=== PATIENT | female | born 1940 | race African-American/Black ===

== ENCOUNTER 2018-04-21 06:37 | Day surgery (SDC) | payer OTHER ==
--- OUTSIDE RECORDS SUMMARY | 2018-04-21 06:43 | XMS REPORT | Continuity of Care Document ---
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 There is no excessive joint fluid. No soft tissue injury is identified. IMPRESSION: 1. No acute fracture or malalignment. 2. Moderate knee osteoarthrosis. 3. Knee joint chondrocalcinosis. HEMATOLOGY MPV 8.6 fL 7.4 - 10.4 05/02 /2014 [facility] HEMATOLOGY MCV 78.9 fL 80.0 - 05/02 98.0 /2014 [facility] MCH 27.4 pg 27.0 - 05/02 31.0 [facility] MCHC 34.7 g/dL 32.0 - 05/02 36.0 /2014 [facility] Hct 42.5 % 36.0 - 05/02 48.0 /2014 [facility] WBC 5.5 K/CMM 3.7 - 10.4 05/02 [facility] RBC 5.38 M/CMM 4.20 - 03 MH 5.40 /2014 [facility] HEMATOLOGY RDW 14.8 % 11.5 - 05/02 14.5 [facility] HEMATOLOGY Platelet 226 K/CMM 133 - 450 05/02 [facility] HEMATOLOGY Hgb 14.7 g/dL 12.0 - 05/02 16.0 /2014 [facility] Microcyte 1+ None Seen 05/02 [facility] *ABN* (05/02/14 1:27 PM) HEMATOLOGY Segs-Bands # 2.9 K/CMM 1.5 - 8.1 05/02 [facility] HEMATOLOGY Monocytes # 0.5 K/CMM 0.0 - 0.8 05/02 [facility] HEMATOLOGY Lymphocytes 2.1 K/CMM 1.0 - 5.5 05/02 [facility] HEMATOLOGY Eosinophils 0.1 K/CMM 0.0 - 0.5 05/02 [facility] HEMATOLOGY Monocytes 8.5 % 2.0 - 12.0 05/02 [facility] HEMATOLOGY Eosinophils 1.2 % 0.0 - 4.0 05/02 [facility] HEMATOLOGY Lymphocytes 37.9 % 20.0 - 05/02 40.0 /2014 [facility] HEMATOLOGY Basophils 0.5 % 0.0 - 1.0 05/02 [facility] HEMATOLOGY Segs 51.9 % 45.0 - 05/02 75.0 /2014 [facility] CHEM PANEL eGFR 84 05/02 1Result Comment: The eGFR is calculated using the CKD-EPI formula. In most young, healthy individuals the eGFR will be >90 mL/ min/1.73m2. The eGFR declines with age. An eGFR of 60-89 may be normal in mL/min/1.7 /2015 some populations, particularly the elderly, for whom the CKD-EPI formula has not been extensively validated. Use of the eGFR is not recommended in the following populations: [facility] 3m2 Individuals with unstable creatinine concentrations, including patients and those with serious co-morbid conditions. Patients with extremes in muscle mass or diet. The data above are obtained from the National Kidney Disease Education Program (NKDEP) which additionally recommends that when the eGFR is used in patients with extremes of body mass index for purposes of drug dosing, the eGFR should be multiplied by the estimated BMI. CHEM PANEL AGAP 9.8 meq/L 10.0 - 05/02 . [facility] CHEM PANEL BUN 5 mg/dL 7 - 22 05/02 [facility] CHEM PANEL Sodium Lvl 135 meq/L 135 - 145 05/02 [facility] CHEM PANEL Creatinine 0.8 mg/dL 0.5 - 1.4 05/02 [facility] CHEM PANEL Potassium 3.8 meq/L 3.5 - 5.1 05/02 [facility] CHEM PANEL Calcium Lvl 9.1 mg/dL 8.5 - 10.5 05/02 [facility] CHEM PANEL Chloride Lvl 100 meq/L 95 - 109 05/02 [facility] CHEM PANEL CO2 29 meq/L 24 - 32 05/02 [facility] CHEM PANEL Glucose Lvl 82 mg/dL 70 - 99 05/02 2Interpretive Data: Adult reference range values reflect the clinical guidelines of the [place] [employer]. [facility] CHEMISTRY AGAP 13.9 meq/L 10.0 - 02/06 Normal [facility] . [facility] CHEMISTRY Calcium Lvl 8.3 mg/dL 8.5 - 10.5 02/06 LOW [facility] CHEMISTRY Creatinine 0.8 mg/dL 0.5 - 1.4 02/06 Normal [facility] CHEMISTRY Chloride Lvl 106.0 95 - 109 02/06 Normal [facility] meq/L [facility] CHEMISTRY Potassium 3.9 meq/L 3.5 - 5.1 02/06 Normal [facility] CHEMISTRY Sodium Lvl 142.0 135 - 145 02/06 Normal [facility] meq/L [facility] Center CHEMISTRY Glucose Lvl 98.0 mg/dL 02/06 NA 3Interpretive Data: Medical Reference Center Ranges : 0 - 7 days : 41 - 90 mg/dL7 days - 150 yrs : 70 - 99 mg/dL (fasting), based on the clinical recommendatio ns of the [place] [employer]. CHEMISTRY CO2 26.0 meq/L 24 - 32 02/06 Normal [facility] CHEMISTRY BUN 9.0 mg/dL 7 - 22 02/06 Normal [facility] CHEMISTRY Magnesium 1.6 mg/dL 1.8 - 2.4 02/06 LOW [facility] HEMATOLOGY INR 1.14 0.85 - 12/ Normal 6Interpretive [place] 1.17 /2010 Data: [facility] Center RANGES FOR PROTIME INR: 2.0-3.0 for most medical and surgical thromboemboli c states. 2.5-3.5 for artificial heart valves and recurrent embolism.INR SHOULD BE USED ONLY FOR PATIENTS ON STABLE ANTICOAGULANT THERAPY. HEMATOLOGY PT 14.6 s 12.0 - 12/ Normal [place] 14.7 /2010 [facility] HEMATOLOGY MCV 80.3 fL 81.0 - 12/ LOW [place] 99.0 /2010 [facility] HEMATOLOGY Hct 34.1 % 36.0 - 12/07 LOW [place] 48.0 /2010 [facility] HEMATOLOGY Hgb 11.6 g/dL 12.0 - 12 LOW [facility] 16.0 /2010 [facility] HEMATOLOGY RBC 4.25 M/CMM 4.20 - 12/ Normal [facility] 5.40 /2010 [facility] HEMATOLOGY MPV 7.9 fL 7.4 - 10.4 12/ Normal /2010 [facility] HEMATOLOGY Platelet 168.0 133 - 450 12/ Normal [facility] K/CMM /2010 [facility] HEMATOLOGY RDW 14.7 % 11.5 - 12/07 HI [facility] 14.5 /2010 [facility] HEMATOLOGY WBC 5.1 K/CMM 3.7 - 10.4 12/ Normal /2010 [facility] HEMATOLOGY MCHC 34.0 g/dL 32.0 - 12/07 Normal [facility] 36.0 /2010 [facility] HEMATOLOGY MCH 27.3 pg 27.0 - 12/07 Normal [facility] 31.0 /2010 [facility] HEMATOLOGY Lymphocytes 31.4 % 20.0 - 12/07 Normal [facility] 40.0 /2010 [facility] HEMATOLOGY Segs 60.7 % 45.0 - 12/07 Normal [facility] 75.0 /2010 [facility] HEMATOLOGY Monocytes 6.3 % 2.0 - 12.0 12/ Normal /2010 [facility] HEMATOLOGY Eosinophils 1.2 % 0.0 - 4.0 12/ Normal [place] /2010 [facility] HEMATOLOGY Monocytes # 0.3 K/CMM 0.0 - 0.8 12/ Normal [place] /2010 [facility] HEMATOLOGY Lymphocytes 1.6 K/CMM 1.0 - 5.5 12/ Normal [facility] # /2010 [facility] HEMATOLOGY Segs-Bands # 3.1 K/CMM 1.5 - 8.1 02/06 Normal [facility] HEMATOLOGY Basophils 0.4 % 0.0 - 1.0 02/06 Normal [facility] HEMATOLOGY Eosinophils 0.1 K/CMM 0.0 - 0.5 02/06 Normal [place] # /2010 [facility] HEMATOLOGY Basophils # 0.0 K/CMM 0.0 - 0.2 02/06 Normal [facility] BLOOD BANK AB Int Anti-K 02/05 Unknown [facility] RESULTS /2010 [facility] BLOOD BANK Antibody Positive 1 02/05 Normal 1Result [facility] RESULTS Scr Comment: Medical (02/05/2011 06:00:00) ?? 02/05/2011 Center 07:59 [id number] nt has unexpected antibodies. Allow extra time for additional crossmatches. 02/05/2011 07:59 [email or web address]"Sign ificant Findings of POSITIVE ABSC_ called to PETRA at [facility] by [facility] Read Back OK" BLOOD BANK ABO/Rh O POS 02/05 Unknown [facility] RESULTS [facility] CHEMISTRY Calcium Lvl 8.5 mg/dL 8.5 - 10.5 02/05 Normal [facility] CHEMISTRY Creatinine 0.7 mg/dL 0.5 - 1.4 02/05 Normal [facility] CHEMISTRY Glucose Lvl 102.0 02/05 NA 4Interpretive [facility] mg/dL Data: [facility] Center Ranges : 0 - 7 days : 41 - 90 mg/dL7 days - 150 yrs : 70 - 99 mg/dL (fasting), based on the clinical recommendatio ns of the [place] [employer]. CHEMISTRY BUN 12.0 mg/dL 7 - 22 02/05 Normal [facility] CHEMISTRY CO2 25.0 meq/L 24 - 32 02/05 Normal [facility] CHEMISTRY Sodium Lvl 143.0 135 - 145 02/05 Normal [facility] meq/L [facility] CHEMISTRY Potassium 3.9 meq/L 3.5 - 5.1 02/05 Normal [facility] Lvl [facility] CHEMISTRY Chloride Lvl 106.0 95 - 109 02/05 Normal [facility] meq/L [facility] CHEMISTRY AGAP 15.9 meq/L 10.0 - 02/05 Normal [place] 20.0 [facility] HEMATOLOGY Lymphocytes 1.9 K/CMM 1.0 - 5.5 12 Normal [facility] # /2010 [facility] Center HEMATOLOGY Monocytes # 0.4 K/CMM 0.0 - 0.8 02/05 Normal [facility] HEMATOLOGY Eosinophils 0.1 K/CMM 0.0 - 0.5 02/05 Normal [facility] # /2010 [facility] HEMATOLOGY Basophils # 0.0 K/CMM 0.0 - 0.2 02/05 Normal [facility] HEMATOLOGY Lymphocytes 37.1 % 20.0 - 12 Normal [place] 40.0 /2010 [facility] HEMATOLOGY Basophils 0.7 % 0.0 - 1.0 02/05 Normal [facility] HEMATOLOGY Segs-Bands # 2.7 K/CMM 1.5 - 8.1 02/05 Normal [facility] HEMATOLOGY Eosinophils 2.2 % 0.0 - 4.0 02/05 Normal [facility] HEMATOLOGY Monocytes 7.9 % 2.0 - 12.0 02/05 Normal [facility] HEMATOLOGY Microcyte 1+ >None Seen 02/05 ABN Medical *ABN* Center (02/05/2011 05:56:00) ?? HEMATOLOGY Segs 52.1 % 45.0 - 02/05 Normal [facility] 75.0 [facility] HEMATOLOGY INR 1.05 0.85 - 02/05 Normal 7Interpretive [facility] 1.17 Data: Medical RECOMMENDED Center RANGES FOR PROTIME INR: 2.0-3.0 for most medical and surgical thromboemboli c states. 2.5-3.5 for artificial heart valves and recurrent embolism.INR SHOULD BE USED ONLY FOR PATIENTS ON STABLE ANTICOAGULANT THERAPY. HEMATOLOGY PT 13.7 s 12.0 - 12 Normal [facility] 14.7 [facility] HEMATOLOGY PTT 28.4 s 22.9 - 12 Normal 9Interpretive [facility] 35.8 Data: [facility] Range: 57 - 92 Seconds HEMATOLOGY Platelet 209.0 133 - 450 02/05 Normal [facility] K/CMM /2010 [facility] HEMATOLOGY MPV 8.2 fL 7.4 - 10.4 02/05 Normal [facility] HEMATOLOGY WBC 5.2 K/CMM 3.7 - 10.4 02/05 Normal [facility] HEMATOLOGY Hct 36.2 % 36.0 - 12 Normal [facility] 48.0 /2010 [facility] HEMATOLOGY MCV 77.6 fL 81.0 - 02/05 LOW [facility] 99.0 /2010 [facility] HEMATOLOGY MCH 27.1 pg 27.0 - 02/05 Normal [facility] 31.0 /2010 [facility] HEMATOLOGY MCHC 34.9 g/dL 32.0 - 02/05 Normal [facility] 36.0 /2010 [facility] HEMATOLOGY RDW 14.4 % 11.5 - 02/05 Normal [facility] 14.5 /2010 [facility] HEMATOLOGY RBC 4.66 M/CMM 4.20 - 02/05 Normal [facility] 5.40 /2010 [facility] HEMATOLOGY Hgb 12.6 g/dL 12.0 - 02/05 Normal [facility] 16.0 /2010 [facility] URINALYSIS UA <=1.0 0.1 - 1.0 02/05 [facility] Urobilinogen mg/dL /2010 Medical
*NA*< Center br/>(02/05 05:56:00) <sup>??</s up> URINALYSIS UA Nitrite Negative >Negative 02/05 Normal [facility] (02/05/2011 05:56:00) ?? Center URINALYSIS UA Sq Epi Moderate /LPF >Few 02/05 ABN [facility] *ABN* Center (02/05/2011 05:56:00) ?? URINALYSIS UA Leuk Est Negative >Negative 02/05 Normal [facility] (02/05/2011 05:56:00) ?? Center URINALYSIS UA Bacteria Occasional /HPF >None Seen 02/05 [facility] Medical *NA* Center (02/05/2011 05:56:00) ?? URINALYSIS UA Blood Negative >Negative 02/05 Normal Medical (02/05/2011 05:56:00) ?? Center URINALYSIS UA WBC 1.0 /HPF 0 - 5 02/05 Normal [facility] Center URINALYSIS UA Glucose Negative mg/dL >Negative 02/05 NA Medical *NA* Center (02/05/2011 05:56:00) ?? URINALYSIS UA Bili Negative >Negative 02/05 NA Medical *NA* Center (02/05/2011 05:56:00) ?? URINALYSIS UA Ketones Negative mg/dL >Negative 02/05 [facility] [place] (02/05/2011 05:56:00) ?? URINALYSIS UA Protein 10 mg/dL >Negative 02/05 [facility] [place] (02/05/2011 05:56:00) ?? URINALYSIS UA Spec Grav 1.023 <<=1.030 02/05 Normal [facility] URINALYSIS UA pH 5.0 5.0 - 8.0 02/05 Normal [facility] URINALYSIS UA Turbidity Slight >Clear 02/05 [facility] [place] (02/05/2011 05:56:00) ?? URINALYSIS UA Color Yellow >Yellow 02/05 [facility] [place] (02/05/2011 05:56:00) ?? CHEMISTRY Glucose Lvl 103.0 01/29 NA 5Interpretive [facility] mg/dL Data: Medical [facility] Center Ranges : 0 - 7 days : 41 - 90 mg/dL7 days - 150 yrs : 70 - 99 mg/dL (fasting), based on the clinical recommendatio ns of the [place] [employer]. CHEMISTRY Creatinine 0.8 mg/dL 0.5 - 1.4 01/29 Normal [facility] CHEMISTRY Calcium Lvl 8.9 mg/dL 8.5 - 10.5 01/29 Normal [facility] CHEMISTRY BUN 10.0 mg/dL 7 - 22 01/29 Normal [facility] CHEMISTRY CO2 28.0 meq/L 24 - 32 01/29 Normal [facility] CHEMISTRY Chloride Lvl 101.0 95 - 109 01/29 Normal [facility] meq/L [facility] CHEMISTRY Potassium 3.9 meq/L 3.5 - 5.1 01/29 Normal [facility] CHEMISTRY Sodium Lvl 140.0 135 - 145 01/29 Normal [facility] meq/L [facility] CHEMISTRY AGAP 14.9 meq/L 10.0 - 01/29 Normal [facility] 20.0 [facility] HEMATOLOGY Segs-Bands # 3.2 K/CMM 1.5 - 8.1 01/29 Normal [facility] HEMATOLOGY Lymphocytes 2.1 K/CMM 1.0 - 5.5 01/29 Normal [place] # /2010 [facility] Center HEMATOLOGY Eosinophils 0.1 K/CMM 0.0 - 0.5 01/29 Normal [place] # /2010 [facility] HEMATOLOGY Monocytes # 0.4 K/CMM 0.0 - 0.8 01/29 Normal /2010 [facility] HEMATOLOGY Basophils # 0.0 K/CMM 0.0 - 0.2 01/29 Normal /2010 [facility] HEMATOLOGY Lymphocytes 35.3 % 20.0 - 11 Normal [place] 40.0 /2010 [facility] HEMATOLOGY Monocytes 7.1 % 2.0 - 12.0 01/29 Normal /2010 [facility] HEMATOLOGY Segs 55.1 % 45.0 - 01/29 Normal [place] 75.0 [facility] HEMATOLOGY Eosinophils 2.2 % 0.0 - 4.0 01/29 Normal /2010 [facility] HEMATOLOGY Basophils 0.3 % 0.0 - 1.0 01/29 Normal [facility] HEMATOLOGY INR 1.06 0.85 - 01/29 Normal 8Interpretive [facility] 1.17 Data: [facility] Center RANGES FOR PROTIME INR: 2.0-3.0 for most medical and surgical thromboemboli c states. 2.5-3.5 for artificial heart valves and recurrent embolism.INR SHOULD BE USED ONLY FOR PATIENTS ON STABLE ANTICOAGULANT THERAPY. HEMATOLOGY PT 13.8 s 12.0 - 01/29 Normal [place] 14.7 [facility] HEMATOLOGY PTT 29.8 s 22.9 - 01/29 Normal 10Interpretiv [facility] 35.8 e Data: [facility] Therapeutic Range: 57 - 92 Seconds HEMATOLOGY MCHC 34.5 g/dL 32.0 - 01/29 Normal [facility] 36.0 [facility] HEMATOLOGY Platelet 217.0 133 - 450 01/29 Normal [facility] K/CMM /2010 [facility] HEMATOLOGY MPV 8.7 fL 7.4 - 10.4 01/29 Normal /2010 [facility] HEMATOLOGY RDW 14.5 % 11.5 - 01/29 Normal [facility] 14.5 [facility] HEMATOLOGY MCH 27.3 pg 27.0 - 01/29 Normal [place] 31.0 [facility] HEMATOLOGY Hgb 13.1 g/dL 12.0 - 01/29 Normal [place] 16.0 [facility] HEMATOLOGY WBC 5.8 K/CMM 3.7 - 10.4 01/29 Normal /2010 [facility] HEMATOLOGY Hct 38.1 % 36.0 - 01/29 Normal [place] 48.0 [facility] HEMATOLOGY MCV 79.0 fL 81.0 - 01/29 LOW [place] 99.0 [facility] HEMATOLOGY RBC 4.82 M/CMM 4.20 - 01/29 Normal [place] 5.40 /2010 [facility] BLOOD BANK Antibody Positive 2 01/29 Normal 2Result [facility] RESULTS Scr Comment: Medical (01/29/2011 10:30:00) ?? 01/29/2011 Center 11:43 [email or web address]"Sign ificant Findings called to [place]_at 1140__by SH__.Read Back OK." BLOOD BANK ABO/Rh O POS 01/29 Unknown [facility] RESULTS [facility] BLOOD BANK AB Int Anti-K 01/29 Unknown [facility] BLOOD BANK Path AB An anti-K 01/29 NA [facility] RESULTS [facility] in this patient??? s serum. This antibody is directed against Yady antigen of the ???Louisa??? blood group system. It is typically IgG in nature and forms in response to RBC sensitizat ion via prior and/or transfusio n. Anti-K is considered a clinically significan t antibody; it has been associated with hemolytic transfusio n reactions. Should RBC transfusio n be necessary, K-negative crossmatch -compatibl e blood will be issued. Little difficulty in obtaining compatible blood is anticipate d since 90% of the donor population lacks the K-antigen. The patient??? s electronic medical record has been reviewed for relevant informatio n.I have reviewed the test results and concur with the resident's interpreta tion.CPT: 53267-SS Vital Signs Vital Sign Value Date Comments Source Systolic (mm Hg) 161 07/25/2017 [facility] Diastolic (mm Hg) 78 07/25/2017 [facility] Heart Rate 72 07/25/2017 [facility] Respitory Rate 12 07/25/2017 [facility] BMI Calculated 35.81 07/25/2017 [facility] Height 172.72 cm 07/25/2017 [facility] Weight 106.818 07/25/2017 [facility] Systolic (mm Hg) 151 10/23/2014 [facility] Diastolic (mm Hg) 73 10/23/2014 [facility] Respitory Rate 19 10/23/2014 [facility] Respitory Rate 16 10/23/2014 [facility] Systolic (mm Hg) 141 10/23/2014 [facility] Diastolic (mm Hg) 73 10/23/2014 [facility] Respitory Rate 22 10/23/2014 [facility] Systolic (mm Hg) 149 10/23/2014 [facility] Diastolic (mm Hg) 76 10/23/2014 [facility] Temperature Oral (F) 98.2 F 10/22/2014 [facility] Weight 96.818 10/22/2014 [facility] BMI Calculated 32.45 10/22/2014 [facility] Height 172.72 cm 10/22/2014 [facility] Temperature Oral (F) 97.7 F 10/22/2014 [facility] Heart Rate 78 10/22/2014 [facility] Respitory Rate 16 05/03/2014 [facility] Systolic (mm Hg) 156 05/03/2014 [facility] Diastolic (mm Hg) 88 05/03/2014 [facility] Respitory Rate 19 05/03/2014 [facility] Systolic (mm Hg) 153 05/03/2014 [facility] Diastolic (mm Hg) 84 05/03/2014 [facility] Systolic (mm Hg) 121 05/03/2014 [facility] Diastolic (mm Hg) 78 05/03/2014 [facility] Respitory Rate 17 05/03/2014 [facility] Heart Rate 69 05/02/2014 [facility] Temperature Oral (F) 97.8 F 05/02/2014 [facility] BMI Calculated 32.96 05/02/2014 [facility] Weight 98.324 05/02/2014 [facility] Height 172.72 cm 05/02/2014 [facility] Systolic (mm Hg) 126.0 02/06/2011 [facility] Temperature Oral (F) 98.8 F 02/06/2011 [facility] Diastolic (mm Hg) 69.0 02/06/2011 [facility] Diastolic (mm Hg) 76.0 02/06/2011 [facility] Systolic (mm Hg) 161.0 02/06/2011 [facility] Diastolic (mm Hg) 67.0 02/06/2011 [facility] Systolic (mm Hg) 125.0 02/06/2011 [facility] Respitory Rate 13.0 02/05/2011 [facility] Respitory Rate 13.0 02/05/2011 [facility] Respitory Rate 18.0 02/05/2011 [facility] Height 172.72 cm 02/05/2011 [facility] Weight 108.182 02/05/2011 [facility] Weight 104.545 01/29/2011 [facility] Height 172.72 cm 01/29/2011 [facility] Encounters Location Location Encounter Encounter Reason Attending ADM DC Status Source Details Type Number For Provider Date Date [facility] [id number] SVT BETHANY 02/05 02/06 Active [facility] BROOKE /2010 [facility] Bedded [id number] Vicky Bocanegra 05/03 05/03 [facility] Outpatient /2014 [facility] Outpatient [id number] Elliott 09/07 09/08 Orestes Lexis /2014 [facility] EC [id number] Raulito 10/22 10/23 [facility] Emergency [place] /2014 [facility] Outpatient [id number] Elliott 07/25 07/26 [facility] Lexis /2017 [facility] Procedures Procedure Code Date Perfomer Comments Source Cataract surgery [id number] [facility] Cholecystectomy [id number] [facility] Hysterectomy [id number] [facility] Tubal ligation [id number] [facility] Cataract surgery [id number] [facility] Cholecystectomy [id number] [facility] Hysterectomy [id number] [facility] Tubal ligation [id number] [facility] Cataract surgery [id number] [facility] Cholecystectomy [id number] [facility] Hysterectomy [id number] [facility] Tubal ligation [id number] [facility]
--- OUTSIDE RECORDS SUMMARY | 2018-04-21 06:44 | XMS REPORT | CCD ---
:1940 Author Organization [facility] Care Team Providers Name Role Phone Reny Hernandez Petra Consulting Provider Sarah Quiñonez Consulting Provider Unavailable Tara Gaffney Consulting Provider Mena Flanagan Consulting Provider Unavailable Lizeth Brewer Consulting Provider Unavailable Jaida Ruiz Consulting Provider Barbara Lunsford Consulting Provider [phone] Vi Grimes Consulting Provider ChartSyi, Login Consulting Provider Unavailable Dimas Santos Consulting Provider Unavailable Noelle Ivy Consulting Provider Unavailable Ludy Minor Consulting Provider Unavailable Sharri Soto Consulting Provider Unavailable Supriya Gaona Consulting Provider Unavailable Lio Terry Consulting Provider Kimmie Syed Consulting Provider Unavailable Claritza Quinteros Consulting Provider Unavailable Prabhakar Adams Consulting Provider Unavailable SYSTEM, SYSTEM Consulting Provider Unavailable Cyndee Kee Consulting Provider Unavailable Lucy Smith Consulting Provider Sharri Lazaro Consulting Provider Chantelle Martin Consulting Provider Lali Smith Consulting Provider [phone] Fani Brooke Referring Provider Allergies, Adverse Reactions, Alerts Substance Reaction Status NKDA ?? Active Problem List Condition Effective Dates Status HTN - Hypertension ?? Active Pain ?? Active Supraventricular tachycardia ?? Active Medications Medication Instructions Start Date End Date Status morphine Sulfate 2 mg, 1 mL, Route: IV, 02/05/2011 02/05/2011 Completed Drug form: INJ, ONCE, Start date: 02/05/11 20:05:00, Stop date: 02/05/11 20:05:00 atenolol 50 mg oral tablet 50 mg, 1 tab, PO, Daily, 02/05/2011 ?? Ordered Substitution Allowed Zofran 4 mg, 2 mL, Route: IVP, 02/05/2011 02/06/2011 Discontinued Drug form: INJ, Q8H, PRN Nausea, Start date: 02/05/11 10:33:00, Duration: 30 day, Stop date: 03/07/11 10:32:00 Ambien 10 mg, Route: PO, 02/05/2011 02/05/2011 Deleted Bedtime, PRN Insomnia, Start date: 02/05/11 10:33:00, Duration: 30 day, Stop date: 03/07/11 10:32:00 magnesium oxide 400 mg, 1 tab, Route: 02/05/2011 02/06/2011 Discontinued PO, Drug form: TAB, Daily, PRN Abnormal Lab Result, Start date: 02/05/11 10:33:00, Duration: 30 day, Stop date: 03/07/11 10:32:00 potassium chloride 20 mEq 20 mEq, 1 tab, Route: 02/05/2011 02/06/2011 Discontinued oral tablet, extended PO, Drug form: ERTAB, release Daily, PRN Abnormal Lab Result, Replacement for potassium less than 3.5, Start date: 02/05/11 10:33:00, Duration: 30 day, Stop date: 03/07/11 10:32:00 Saline Flush 0.9% 5 ml, Route: IVP, Drug 02/05/2011 02/06/2011 Discontinued Form: INJ, PRN, PRN Line Flush, Start date: 02/05/11 10:33:00, Duration: 30 day, Stop date: 03/07/11 10:32:00 Saline Flush 0.9% 5 ml, Route: IVP, Drug 02/05/2011 02/06/2011 Discontinued Form: INJ, Q12H, Start date: 02/05/11 21:00:00, Duration: 30 day, Stop date: 03/07/11 9:00:00 morphine Sulfate 2 mg, 1 mL, Route: IVP, 02/05/2011 02/05/2011 Completed Drug form: INJ, Q15Min, PRN Chest Pain, Start date: 02/05/11 10:33:00, Duration: 2 doses or times, Stop date: 02/05/11 18:00:00 levothyroxine 0.1 mg, 1 tab, Route: 02/06/2011 02/06/2011 Discontinued PO, Drug form: TAB, Daily, Start date: 02/06/11 9:00:00, Duration: 30 day, Stop date: 03/07/11 9:00:00 atenolol 50 mg oral tablet 50 mg, 1 tab, Route: PO, 02/06/2011 02/06/2011 Discontinued Drug form: TAB, Daily, Start date: 02/06/11 9:00:00, Duration: 30 day, Stop date: 03/07/11 9:00:00 levothyroxine 100 mcg (0.1 0.1 mg, 1 tab, PO, 02/05/2011 ?? Ordered mg) oral tablet Daily, Substitution Allowed Vicodin 5/500 oral tablet 1 tab, PO, Q4H, PRN, 15 02/06/2011 ?? Ordered tab, for pain, Substitution Allowed, Maintenance, TAB morphine Sulfate 2 mg, 1 mL, Route: IV, 02/06/2011 02/06/2011 Discontinued Drug form: INJ, Q4H, PRN as needed for pain, Start date: 02/06/11 3:33:00, Duration: 30 day, Stop date: 03/08/11 3:32:00 Restoril 30 mg, 2 cap, Route: PO, 02/05/2011 02/06/2011 Discontinued Drug form: CAP, Bedtime, PRN Sleep, Start date: 02/05/11 10:38:00, Duration: 30 day, Stop date: 03/07/11 10:37:00 Vital Signs Most recent to oldest 1 2 3 [Reference Range]: Height 172.72 cm 172.72 cm ?? (02/05/2011 05:52:00) ?? (01/29/2011 10:32:00) ?? Temperature Oral 98.8 DegF ? [96.4-99.1 DegF] (02/06/2011 08:00:00) ?? Systolic Blood Pressure 126 mmHg 161 mmHg 125 mmHg [90-140 mmHg] (02/06/2011 08:00:00) ?? *HI* (02/06/2011 02:47:00) ?? (02/06/2011 04:45:00) ?? Diastolic Blood Pressure 69 mmHg 76 mmHg 67 mmHg [60-90 mmHg] (02/06/2011 08:00:00) ?? (02/06/2011 04:45:00) ?? (02/06/2011 02:47:00) ?? Respiratory Rate [14-20 13 BRMIN 13 BRMIN 18 BRMIN BRMIN] *LOW* *LOW* (02/05/2011 11:00:00) ?? (02/05/2011 11:30:00) ?? (02/05/2011 11:15:00) ?? Weight 108.182 kg 104.545 kg ?? (02/05/2011 05:52:00) ?? (01/29/2011 10:32:00) ?? Results URINALYSIS Most recent to oldest [Reference Range]: 1 2 3 UA Turbidity [>Clear] Slight ? *ABN* (02/05/2011 05:56:00) ?? UA Color [>Yellow] Yellow ? *NA* (02/05/2011 05:56:00) ?? UA pH [5.0-8.0] 5.0 ? (02/05/2011 05:56:00) ?? UA Spec Grav [<<=1.030] 1.023 ? (02/05/2011 05:56:00) ?? UA Glucose [>Negative mg/dL] Negative mg/dL ? *NA* (02/05/2011 05:56:00) ?? UA Blood [>Negative] Negative ? (02/05/2011 05:56:00) ?? UA Ketones [>Negative mg/dL] Negative mg/dL ? *NA* (02/05/2011 05:56:00) ?? UA Protein [>Negative mg/dL] 10 mg/dL ? *ABN* (02/05/2011 05:56:00) ?? UA Urobilinogen [0.1-1.0 mg/dL] <=1.0 mg/dL ? *NA* (02/05/2011 05:56:00) ?? UA Bili [>Negative] Negative ? *NA* (02/05/2011 05:56:00) ?? UA Leuk Est [>Negative] Negative ? (02/05/2011 05:56:00) ?? UA Nitrite [>Negative] Negative ? (02/05/2011 05:56:00) ?? UA WBC [0-5 /HPF] 1 /HPF ? (02/05/2011 05:56:00) ?? UA Bacteria [>None Seen /HPF] Occasional /HPF ? *NA* (02/05/2011 05:56:00) ?? UA Sq Epi [>Few /LPF] Moderate /LPF ? *ABN* (02/05/2011 05:56:00) ?? BLOOD BANK RESULTS Most recent to oldest 1 2 3 [Reference Range]: ABO/Rh O POS O POS ?? *Unknown* *Unknown* (02/05/2011 06:00:00) ?? (01/29/2011 10:30:00) ?? Antibody Scrn Positive 1 Positive 2 ?? (02/05/2011 06:00:00) ?? (01/29/2011 10:30:00) ?? AB Int Anti-K Anti-K ?? *Unknown* *Unknown* (02/05/2011 06:00:00) ?? (01/29/2011 10:30:00) ?? Path AB An anti-K is detected in this patient???s serum. This antibody is directed against [place] antigen of the ???[place]??? blood group system. It is typically IgG in nature and forms in response to RBC sensiti ? zation via prior and/or transfusion. Anti-K is considered a clinically significant antibody; it has been associated with hemolytic transfusion reactions. Should RBC transfusion be necessary, K-negative crossmatch-compatible blood will be issued. Little difficulty in obtaining compatible blood is anticipated since 90% of the donor population lacks the K-antigen.The patient???s electronic m edical record has been reviewed for relevant information.I have reviewed the test results and concur with the resident's interpretation.CPT: 55326-KQ *NA* (01/29/2011 10:30:00) ?? 1Result Comment: 02/05/2011 07:59 [id number] has unexpected antibodies. Allow extra time for additional crossmatches. 02/05/2011 07:59 TIMARTI2 "Significant Findings of POSITIVE ABSC_ called to PETAR at TYPING CHECKER by TSM Read Back OK"2Result Comment: 01/29/2011 11:43 SHHLAVAT"Significant Findings called to [place]_at 1140__by SH__.Read Back OK."CHEMISTRY Most recent to oldest 1 2 3 [Reference Range]: Sodium Lvl [135-145 mEq/L] 142 mEq/L 143 mEq/L 140 mEq/L (02/06/2011 04:30:00) ?? (02/05/2011 05:56:00) ?? (01/29/2011 10:34:00) ?? Potassium Lvl [3.5-5.1 3.9 mEq/L 3.9 mEq/L 3.9 mEq/L mEq/L] (02/06/2011 04:30:00) ?? (02/05/2011 05:56:00) ?? (01/29/2011 10:34: 00) ?? Chloride Lvl [95-109 mEq/L] 106 mEq/L 106 mEq/L 101 mEq/L (02/06/2011 04:30:00) ?? (02/05/2011 05:56:00) ?? (01/29/2011 10:34:00) ?? CO2 [24-32 mEq/L] 26 mEq/L 25 mEq/L 28 mEq/L (02/06/2011 04:30:00) ?? (02/05/2011 05:56:00) ?? (01/29/2011 10:34:00) ?? AGAP [10.0-20.0 mEq/L] 13.9 mEq/L 15.9 mEq/L 14.9 mEq/L (02/06/2011 04:30:00) ?? (02/05/2011 05:56:00) ?? (01/29/2011 10:34:00) ?? Creatinine Lvl [0.5-1.4 0.8 mg/dL 0.7 mg/dL 0.8 mg/dL mg/dL] (02/06/2011 04:30:00) ?? (02/05/2011 05:56:00) ?? (01/29/2011 10:34: 00) ?? BUN [7-22 mg/dL] 9 mg/dL 12 mg/dL 10 mg/dL (02/06/2011 04:30:00) ?? (02/05/2011 05:56:00) ?? (01/29/2011 10:34:00) ?? Glucose Lvl 98 mg/dL 3 102 mg/dL 4 103 mg/dL 5 *NA* *NA* *NA* (02/06/2011 04:30:00) ?? (02/05/2011 05:56:00) ?? (01/29/2011 10:34:00) ?? Calcium Lvl [8.5-10.5 8.3 mg/dL 8.5 mg/dL 8.9 mg/dL mg/dL] *LOW* (02/05/2011 05:56:00) ?? (01/29/2011 10:34:00) ?? (02/06/2011 04:30:00) ?? Magnesium Lvl [1.8-2.4 1.6 mg/dL ? mg/dL] *LOW* (02/06/2011 04:30:00) ?? 3Interpretive Data: Reference Ranges : 0 - 7 days : 41 - 90 mg/dL7 days - 150 yrs : 70 - 99 mg/dL (fasting), based on the clinical recommendations of the [place] [employer].4Interpretive Data: Reference Ranges : 0 - 7 days : 41 - 90 mg/dL7 days - 150 yrs : 70 - 99 mg/dL (fasting), based on the clinical recommendations of the [place] [employer].5Interpretive Data : Reference Ranges : 0 - 7 days : 41 - 90 mg/dL7 days - 150 yrs : 70 - 99 mg/dL (fasting), based on the clinical recommendations of the [place] [employer].HEMATOLOGY Most recent to oldest 1 2 3 [Reference Range]: WBC [3.7-10.4 K/CMM] 5.1 K/CMM 5.2 K/CMM 5.8 K/CMM (02/06/2011 04:30:00) ?? (02/05/2011 05:56:00) ?? (01/29/2011 10:34:00) ?? RBC [4.20-5.40 M/CMM] 4.25 M/CMM 4.66 M/CMM 4.82 M/CMM (02/06/2011 04:30:00) ?? (02/05/2011 05:56:00) ?? (01/29/2011 10:34:00) ?? Hgb [12.0-16.0 g/dL] 11.6 g/dL 12.6 g/dL 13.1 g/dL *LOW* (02/05/2011 05:56:00) ?? (01/29/2011 10:34:00) ?? (02/06/2011 04:30:00) ?? Hct [36.0-48.0 %] 34.1 % 36.2 % 38.1 % *LOW* (02/05/2011 05:56:00) ?? (01/29/2011 10:34:00) ?? (02/06/2011 04:30:00) ?? MCV [81.0-99.0 fL] 80.3 fL 77.6 fL 79.0 fL *LOW* *LOW* *LOW* (02/06/2011 04:30:00) ?? (02/05/2011 05:56:00) ?? (01/29/2011 10:34:00) ?? MCH [27.0-31.0 pg] 27.3 pg 27.1 pg 27.3 pg (02/06/2011 04:30:00) ?? (02/05/2011 05:56:00) ?? (01/29/2011 10:34:00) ?? MCHC [32.0-36.0 g/dL] 34.0 g/dL 34.9 g/dL 34.5 g/dL (02/06/2011 04:30:00) ?? (02/05/2011 05:56:00) ?? (01/29/2011 10:34:00) ?? RDW [11.5-14.5 %] 14.7 % 14.4 % 14.5 % *HI* (02/05/2011 05:56:00) ?? (01/29/2011 10:34:00) ?? (02/06/2011 04:30:00) ?? Platelet [133-450 K/CMM] 168 K/CMM 209 K/CMM 217 K/CMM (02/06/2011 04:30:00) ?? (02/05/2011 05:56:00) ?? (01/29/2011 10:34:00) ?? MPV [7.4-10.4 fL] 7.9 fL 8.2 fL 8.7 fL (02/06/2011 04:30:00) ?? (02/05/2011 05:56:00) ?? (01/29/2011 10:34:00) ?? Segs [45.0-75.0 %] 60.7 % 52.1 % 55.1 % (02/06/2011 04:30:00) ?? (02/05/2011 05:56:00) ?? (01/29/2011 10:34:00) ?? Lymphocytes [20.0-40.0 %] 31.4 % 37.1 % 35.3 % (02/06/2011 04:30:00) ?? (02/05/2011 05:56:00) ?? (01/29/2011 10:34:00) ?? Monocytes [2.0-12.0 %] 6.3 % 7.9 % 7.1 % (02/06/2011 04:30:00) ?? (02/05/2011 05:56:00) ?? (01/29/2011 10:34:00) ?? Eosinophils [0.0-4.0 %] 1.2 % 2.2 % 2.2 % (02/06/2011 04:30:00) ?? (02/05/2011 05:56:00) ?? (01/29/2011 10:34:00) ?? Basophils [0.0-1.0 %] 0.4 % 0.7 % 0.3 % (02/06/2011 04:30:00) ?? (02/05/2011 05:56:00) ?? (01/29/2011 10:34:00) ?? Segs-Bands # [1.5-8.1 3.1 K/CMM 2.7 K/CMM 3.2 K/CMM K/CMM] (02/06/2011 04:30:00) ?? (02/05/2011 05:56:00) ?? (01/29/2011 10:34: 00) ?? Lymphocytes # [1.0-5.5 1.6 K/CMM 1.9 K/CMM 2.1 K/CMM K/CMM] (02/06/2011 04:30:00) ?? (02/05/2011 05:56:00) ?? (01/29/2011 10:34: 00) ?? Monocytes # [0.0-0.8 0.3 K/CMM 0.4 K/CMM 0.4 K/CMM K/CMM] (02/06/2011 04:30:00) ?? (02/05/2011 05:56:00) ?? (01/29/2011 10:34: 00) ?? Eosinophils # [0.0-0.5 0.1 K/CMM 0.1 K/CMM 0.1 K/CMM K/CMM] (02/06/2011 04:30:00) ?? (02/05/2011 05:56:00) ?? (01/29/2011 10:34: 00) ?? Basophils # [0.0-0.2 0.0 K/CMM 0.0 K/CMM 0.0 K/CMM K/CMM] (02/06/2011 04:30:00) ?? (02/05/2011 05:56:00) ?? (01/29/2011 10:34: 00) ?? Microcyte [>None Seen] 1+ ? *ABN* (02/05/2011 05:56:00) ?? PT [12.0-14.7 seconds] 14.6 seconds 13.7 seconds 13.8 seconds (02/06/2011 04:30:00) ?? (02/05/2011 05:56:00) ?? (01/29/2011 10:34:00) ?? INR [0.85-1.17] 1.14 6 1.05 7 1.06 8 (02/06/2011 04:30:00) ?? (02/05/2011 05:56:00) ?? (01/29/2011 10:34:00) ?? PTT [22.9-35.8 seconds] 28.4 seconds 9 29.8 seconds 10 ?? (02/05/2011 05:56:00) ?? (01/29/2011 10:34:00) ?? 6Interpretive Data: RECOMMENDED RANGES FOR PROTIME INR: 2.0-3.0 for most medical and surgical thromboembolic states. 2.5-3.5 for artificial heart valves and recurrent embolism.INR SHOULD BE USED ONLY FOR PATIENTS ON STABLE ANTICOAGULANT THERAPY.7Interpretive Data: RECOMMENDED RANGES FOR PROTIME INR: 2.0-3.0 for most medical and surgical thromboembolic states. 2.5-3.5 for artificial heart valves and recurrent embolism.INR SHOULD BE USED ONLY FOR PATIENTS ON STABLE ANTICOAGULANT THERAPY.8Interpretive Data: RECOMMENDED RANGES FOR PROTIME INR: 2.0-3.0 for most medical and surgical thromboembolic states. 2.5-3.5 for artificial heart valves and recurrent embolism.INR SHOULD BE USED ONLY FOR PATIENTS ON STABLE ANTICOAGULANT THERAPY.9Interpretive Data: Heparin Therapeutic Range: 57 - 92 [id number] Data: Heparin Therapeutic Range: 57 - 92 Seconds
--- OUTSIDE RECORDS SUMMARY | 2018-04-21 06:44 | XMS REPORT | CCD ---
:1940 Author Organization [facility] Care Team Providers Name Role Phone [place] Tara Consulting Provider Sara Sena Consulting Provider QuincyBarbara hanson Consulting Provider [phone] Vi Grimes Consulting Provider ChartServer, Login Consulting Provider Unavailable Noelle Ivy Consulting Provider Unavailable Claritza Quinteros Consulting Provider Unavailable SYSTEM, SYSTEM Consulting Provider Unavailable Fani Brooke Referring Provider Allergies, Adverse Reactions, Alerts Substance Reaction Status NKDA ?? Active Problem List Condition Effective Dates Status HTN - Hypertension ?? Active Supraventricular tachycardia ?? Active Vital Signs Most recent to oldest [Reference Range]: 1 Height 172.72 cm (01/29/2011 10:32:00) ?? Weight 104.545 kg (01/29/2011 10:32:00) ?? Results BLOOD BANK RESULTS Most recent to oldest [Reference Range]: 1 ABO/Rh O POS *Unknown* (01/29/2011 10:30:00) ?? Antibody Scrn Positive 1 (01/29/2011 10:30:00) ?? AB Int Anti-K *Unknown* (01/29/2011 10:30:00) ?? Path AB An anti-K is detected in this patient???s serum. This antibody is directed against [place] antigen of the ???[place]??? blood group system. It is typically IgG in nature and forms in response to RBC sensiti zation via prior and/or transfusion. Anti-K is [...] results and concur with the resident's interpretation.CPT: 15799-KL *NA* (01/29/2011 10:30:00) ?? 1Result Comment: 01/29/2011 11:43 SHHLAVAT"Significant Findings called to [facility]_at 1140__by SH__.Read Back OK."CHEMISTRY Most recent to oldest [Reference Range]: 1 Sodium Lvl [135-145 mEq/L] 140 mEq/L (01/29/2011 10:34:00) ?? Potassium Lvl [3.5-5.1 mEq/L] 3.9 mEq/L (01/29/2011 10:34:00) ?? Chloride Lvl [95-109 mEq/L] 101 mEq/L (01/29/2011 10:34:00) ?? CO2 [24-32 mEq/L] 28 mEq/L (01/29/2011 10:34:00) ?? AGAP [10.0-20.0 mEq/L] 14.9 mEq/L (01/29/2011 10:34:00) ?? Creatinine Lvl [0.5-1.4 mg/dL] 0.8 mg/dL (01/29/2011 10:34:00) ?? BUN [7-22 mg/dL] 10 mg/dL (01/29/2011 10:34:00) ?? Glucose Lvl 103 mg/dL 2 *NA* (01/29/2011 10:34:00) ?? Calcium Lvl [8.5-10.5 mg/dL] 8.9 mg/dL (01/29/2011 10:34:00) ?? 2Interpretive Data: Reference Ranges : 0 - 7 days : 41 - 90 mg/dL7 days - 150 yrs : 70 - 99 mg/dL (fasting), based on the clinical recommendations of the [place] [employer].HEMATOLOGY Most recent to oldest [Reference Range]: 1 WBC [3.7-10.4 K/CMM] 5.8 K/CMM (01/29/2011 10:34:00) ?? RBC [4.20-5.40 M/CMM] 4.82 M/CMM (01/29/2011 10:34:00) ?? Hgb [12.0-16.0 g/dL] 13.1 g/dL (01/29/2011 10:34:00) ?? Hct [36.0-48.0 %] 38.1 % (01/29/2011 10:34:00) ?? MCV [81.0-99.0 fL] 79.0 fL *LOW* (01/29/2011 10:34:00) ?? MCH [27.0-31.0 pg] 27.3 pg (01/29/2011 10:34:00) ?? MCHC [32.0-36.0 g/dL] 34.5 g/dL (01/29/2011 10:34:00) ?? RDW [11.5-14.5 %] 14.5 % (01/29/2011 10:34:00) ?? Platelet [133-450 K/CMM] 217 K/CMM (01/29/2011 10:34:00) ?? MPV [7.4-10.4 fL] 8.7 fL (01/29/2011 10:34:00) ?? Segs [45.0-75.0 %] 55.1 % (01/29/2011 10:34:00) ?? Lymphocytes [20.0-40.0 %] 35.3 % (01/29/2011 10:34:00) ?? Monocytes [2.0-12.0 %] 7.1 % (01/29/2011 10:34:00) ?? Eosinophils [0.0-4.0 %] 2.2 % (01/29/2011 10:34:00) ?? Basophils [0.0-1.0 %] 0.3 % (01/29/2011 10:34:00) ?? Segs-Bands # [1.5-8.1 K/CMM] 3.2 K/CMM (01/29/2011 10:34:00) ?? Lymphocytes # [1.0-5.5 K/CMM] 2.1 K/CMM (01/29/2011 10:34:00) ?? Monocytes # [0.0-0.8 K/CMM] 0.4 K/CMM (01/29/2011 10:34:00) ?? Eosinophils # [0.0-0.5 K/CMM] 0.1 K/CMM (01/29/2011 10:34:00) ?? Basophils # [0.0-0.2 K/CMM] 0.0 K/CMM (01/29/2011 10:34:00) ?? PT [12.0-14.7 seconds] 13.8 seconds (01/29/2011 10:34:00) ?? INR [0.85-1.17] 1.06 3 (01/29/2011 10:34:00) ?? PTT [22.9-35.8 seconds] 29.8 seconds 4 (01/29/2011 10:34:00) ?? 3Interpretive Data: RECOMMENDED RANGES FOR PROTIME INR: 2.0-3.0 for most medical and surgical thromboembolic states. 2.5-3.5 for artificial heart valves and recurrent embolism.INR SHOULD BE USED ONLY FOR PATIENTS ON STABLE ANTICOAGULANT THERAPY.4Interpretive Data: Heparin Therapeutic Range: 57 - 92 Seconds
[2018-04-21] MEDS ORDERED: Ringers Lactate 1,000 ML IV ONE (07:01)
[2018-04-21] MEDS ORDERED: PILOCARPINE 1% OPTH DROPS 15 ML BTL OPTH ONE (07:15)
[2018-04-21] MEDS ORDERED: KETOROLAC OPTHALMIC 5 ML BOT ONE (07:22)
[2018-04-21] MEDS ORDERED: Gatifloxacin Ophth 0.5% (2.5 ML BTL) OPTH ONE (07:22)
[2018-04-21] MEDS ORDERED: PROPOFOL 200 MG/20 ML VIAL IV ONE (07:26)
[2018-04-21] MEDS ORDERED: LIDOCAINE 2% MPF 5 ML VIAL ONE (07:27)
[2018-04-21] MEDS ORDERED: ONDANSETRON 4 MG/2 ML VIAL ONE (07:27)
[2018-04-21] MEDS ORDERED: FENTANYL CITR 100 MCG/2 ML ONE (07:27)
[2018-04-21] MEDS ORDERED: TOBRADEX 0.3-0.1% OPTH OINTMENT ONE (07:38)
[2018-04-21] MEDS ORDERED: BSS OPTHALMIC SOL 15 ML BOT OPTH ONE (07:38)
[2018-04-21] MEDS ORDERED: TOBRAMYCIN SULF 80 MG/2 ML VIAL ONE (07:38)
[2018-04-21] MEDS ORDERED: TRIAMCINOLONE ACETON 40 MG/ML VIAL ONE (07:38)
[2018-04-21] MEDS ORDERED: HYALURONATE SODIUM 14 MG/ML SYR OPTH ONE (07:39)
[2018-04-21] MEDS ORDERED: EPHEDRINE SULF 50 MG/ML VIAL ONE (08:19)
[2018-04-21] MEDS ORDERED: TRYPAN BLUE 0.5 ML SYR OPTH ONE (08:25)
[2018-04-21] MEDS ORDERED: EPINEPHRINE/PF 1 MG/ML AMP ONE (08:32)
[2018-04-21] MEDS ORDERED: BALANCED SALT IRRIG PLAIN 500 ML BTL IRR ONE (08:32)
[2018-04-21] MEDS ORDERED: ACETAMINOPHEN 325 MG TABLET ONE (11:00)
--- NOTE | 2018-04-21 21:07 | OP ---
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 Procedure Performed: Descemet stripping automated endothelial keratoplasty, right eye. Description Of Procedure: After being properly identified in the preoperative holding area, the gina ent was taken back to the operating room where time-out was performed. The patient was then prepped and draped in normal sterile fashion. Examination of the corneal tissue obtained from [facility] , tissue #[id number], was opened with the serologies and endothelial cell count as well as preservat ion time, and all other pertinent data reviewed and found to match the corneal tissue that was priorl y approved. The patient was then prepped and draped in the normal sterile fashion. The corneal tiss ue was removed and placed on the back table and our attention was turned to the patient. The size of the corneal tissue to be transplant was measured to be 8 mm and a trephine was used to brando the ante rior surface of the cornea accordingly, and then our attention turned to the back table. Using a Bar jair-[place] type punch, the corneal tissue was punched to 8 mm and the endothelium tested to be able to have good separation from the stromal base, that was confirmed. Optisol was reapplied, and our a ttention once again returned to the patient. A paracentesis port was made superiorly and inferiorly with the paracentesis blade, and the anterior chamber filled with Healon. The main incision was made temporally using a 2.75 mm keratome and using a reverse Sinskey hook, the Descemet membrane was nicole guillermo and a single solid piece at the end grasping with a pair of tying forceps and pulling out. There after, the paracentesis blade was used to make a PI in the superior nasal position, and then the bima nual irrigation aspiration handpiece was used to irrigate out the remaining Healon as well as go clos e to the stroma in order to ensure a nice clean stromal base. The incision wound was widened and a S heets glide placed into the anterior chamber. Because of the shallowing of the chamber, an AC mainta iner was placed for the process of placing the patient graft. Going back to the second table, the Op tisol was gently weck-celled off and Healon applied on the endothelial surface. The endothelium was folded over into a taco shape and then stained with trypan blue. The transplantable tissue was then carefully moved to a patent spatula and then transferred over to the Sheets glide. It was inserted i n a single smooth motion using a bent hook on BSS with the Sheets glide, then removed, changing that needle for a bent 30-gauge needle hook on air. The graft was opened once again in a single fluid mot ion, and the graft relatively centered. The main incision was sutured closed with 3 interrupted 10-0 nylon sutures, which were then rotated with the knot buried. Additional air was added for a 100% fi ll along with a mild centration correction on the graft, which was then allowed to remain in place fo r approximately 15 minutes. A Schiotz tonometer was not available. However, digital palpation revea led adequate pressure for successful adherence of the graft, and when re-examined, the graft and air bubble were still present as placed. The procedure was then concluded with the lid speculum removed, and the patient patched over TobraDex ointment. She was taken to the postoperative holding area in stable condition having tolerated the procedure well. There were no complications. Estimated blood loss less than 1 mL. She is to follow up with myself Dr. Myron Velazquez at the [facility] tomorrow morning. ANTHONY/ANISAL Voice ID: [id number] Report ID: [id number]
== END 2018-04-21 11:45 | disposition home or self-care (01) ==
LOC: OR 06:37
PROVIDERS: ATTEND Ophthalmology
PROC: 08R8XKZ Replacement of Right Cornea with Nonautologous Tissue Substitute, External Approach (ICD-10-PCS; principal; 2018-04-21 07:30)
DX: H18.51 Endothelial corneal dystrophy (principal); H18.231 Secondary corneal edema, right eye
CPT/HCPCS: 87070; 88304; J0171; J2405; J2704; J3010; J3301